=== PATIENT | female | born 1985 | race Caucasian/White ===

== ENCOUNTER 2018-08-07 22:03 | Emergency (ER) | payer MEDICAID ==
[2018-08-08] MEDS ORDERED: LIDOCAINE 1%/EPINEPHRINE INJ 20 ML VIAL ONE (00:59)
[2018-08-08] MEDS ORDERED: LIDOCAINE 1%/EPINEPHRINE INJ 20 ML VIAL INJ ONE (01:00)
--- NOTE | 2018-08-08 01:05 | ER Document Report ---
ED Skin Rash/Insect Bite/Abscs - General Chief Complaint: Abscess Stated Complaint: LEFT BREAST PAIN Time Seen by Provider: 08/07/18 23:07 Primary Care Provider: [facility] [Provider Group] - 08/22/18 Notes: Patient is a 33-year-old female who presents to the emergency department with a chief complaint of a cyst or abscess to her left breast. About 3 days ago she noticed that she had redness, swelling, and pain to the area. She states it is a tender sore pain. She marked the area, which is on the medial aspect of her areola. She also has marked the swelling and notes it has spread She has history of having an abscess to her right breast, which needed to be surgically removed. She denies any fever, nausea, vomiting, diarrhea, or any other symptoms. TRAVEL OUTSIDE OF THE [place] IN LAST 30 DAYS: No - Related Data Allergies/Adverse Reactions: No Known Allergies Allergy (Unverified 08/07/18 22:06) Past Medical History - Social History Smoking Status: Never Smoker Frequency of alcohol use: Occasional Drug Abuse: None Family History: Reviewed & Not Pertinent Patient has suicidal ideation: No Patient has homicidal ideation: No Renal/ Medical History: Denies: Hx Peritoneal Dialysis Review of Systems - Review of Systems Notes: REVIEW OF SYSTEMS: CONSTITUTIONAL : Denies recent illness. Denies recent unintentional weight loss. Denies fever, chills, or sweats. EENT: Denies eye, ear, throat, or mouth pain, discharge, or symptoms. Denies nasal or sinus congestion. CARDIOVASCULAR: Denies chest pain. RESPIRATORY: Denies shortness of breath, cough, congestion, difficulty breathing, or wheezing. GASTROINTESTINAL: Denies nausea, vomiting, and diarrhea. Denies abdominal pain. Denies constipation. GENITOURINARY: Denies difficulty urinating, burning, blood in urine, urgency or frequency. MUSCULOSKELETAL: Denies neck and back pain. Denies joint pain or swelling. SKIN: See HPI HEMATOLOGIC : Denies easy bruising or bleeding. LYMPHATIC: Denies swollen, painful, enlarged glands. NEUROLOGICAL: Denies no numbness or tingling denies weakness. Denies headache. Denies altered mental status. Denies alteration in speech. PSYCHIATRIC: Denies stress, anxiety, alteration in sleep patterns, or depression. All other systems reviewed and negative. Physical Exam - Vital signs Vitals: Temp Pulse Resp BP Pulse Ox 98.8 F 95 14 145/43 H 96 08/07/18 22:48 08/07/18 22:48 08/07/18 22:48 08/07/18 22:48 08/07/18 22:48 - Notes Notes: PHYSICAL EXAMINATION: GENERAL: Appears well, healthy, well-nourished, no acute distress. HEAD: Normocephalic, atraumatic. EYES: PERRL, conjunctiva normal, all extraocular movements intact, sclera nonicteric ENT: Moist mucous membranes. NECK: Supple, no noticeable swelling, redness, rash. Normal range of motion. LUNGS: Equal breath sounds bilaterally and clear to auscultation. No wheezes rales or rhonchi. CARDIOVASCULAR: S1-S2, regular rate, regular rhythm. Radial pulses 2+, normal. ABDOMEN: Normoactive bowel sounds. Soft, nontender, no guarding, no rebound tenderness, and no masses palpated. EXTREMITIES: Normal strength and range of motion, no pitting or edema. No cyanosis. NEUROLOGICAL: Moves all extremities upon command. Strength 5/5 in all extremities. PSYCH: Normal mood, normal affect. SKIN: Warm, dry. Redness noted to medial aspect of left areola with surrounding cellulitis. Abcess noted on bedside ultrasound. Course - Re-evaluation Re-evalutation: Differential diagnosis includes but normal limited to: abscess, dermoid cyst, sebaceous cyst, furnucle, or others. Based on patient's physical exam and history, this is an abscess. 08/07/18 23:[address] Dunlap and asked him to evaluate the patient because the abscess is underneath her areola via bedside ultrasound and do not feel comfortable draining abscess underneath the areola myself. He is going to come to bedside to evaluate the patient. 08/08/18 01:05 Dr. Dunlap is at bedside to evaluate the patient. He will I&D the abscess at bedside. 08/08/18 01:44 Dr. Dunlap has finished the I&D and has placed packing to the area. She will be started on Augmentin 875 mg twice daily times 10 days. She will remove the packing tomorrow and repack her wound every day and apply triple antibiotic to the area. In 2 weeks she will follow-up with SANTY Grady in the office. She will be given Toradol for pain control and also take Tylenol. - Vital Signs Vital signs: Temp Pulse Resp BP Pulse Ox 98.2 F 82 16 146/93 H 100 08/08/18 02:22 08/08/18 02:22 08/08/18 02:22 08/08/18 02:22 08/08/18 02:22 Discharge - Discharge Clinical Impression: Abscess Condition: Stable Disposition: HOME, SELF-CARE Instructions: Abscess ([facility]) Additional Instructions: You were seen today in the emergency department for an abscess on your left breast. The surgeon came by and drained the abscess. Tomorrow we will remove the packing, and placed new packing for the next [address] triple antibiotic to the area. We will also start antibiotics for the next 10 days. Please take all your antibiotics as prescribed. In 2 weeks he will follow-up with the physician junior sales assistant in the office. You have also been given Toradol, medication for pain. Please make sure you also take Tylenol for your pain. When you do not have any more Toradol, you can take ibuprofen for your pain. If you develop a fever greater than 100.4 F, see the redness spreading, or have any symptoms that are worrisome to you, please return to the emergency department. Prescriptions: Ketorolac Tromethamine [Toradol 10 mg Tablet] 10 mg PO Q6HP PRN #20 tablet PRN Reason: Amox Tr/Potassium Clavulanate [Augmentin 875-125 Tablet] 1 tab PO BID 10 Days #20 tablet Referrals: [facility] [Provider Group] - 08/22/18
[2018-08-08] MEDS ORDERED: LIDOCAINE 2% INJ (20 MG/ML) 20 ML MDV ONE (01:18)
--- NOTE | 2018-08-08 01:38 | PDOC CONSULTATION ---
Consultation Consult Date: 08/08/18 Consult reason:: left breast redness and pain History of Present Illness History of Present Illness: SOLANGE LARSEN is a 33 year old female with a 3 day hx of left breast periareolar pain and redness. Social History Smoking Status: Never Smoker Family History Parental Family History Reviewed: Yes - diabetes Children Family History Reviewed: No Sibling(s) Family History Reviewed.: No Medication/Allergy Allergies/Adverse Reactions: No Known Allergies Allergy (Unverified 08/07/18 22:06) Physical Exam Vital Signs: Temp Pulse Resp BP Pulse Ox 98.8 F 95 14 145/43 H 96 08/07/18 22:48 08/07/18 22:48 08/07/18 22:48 08/07/18 22:48 08/07/18 22:48 Intake & Output 08/06/18 08/07/18 08/08/18 06:59 06:59 06:59 Weight 99.3 kg General appearance: PRESENT: no acute distress, mild distress Eye exam: PRESENT: EOMI Mouth exam: PRESENT: neck supple Respiratory exam: PRESENT: clear to auscultation qing Cardiovascular exam: PRESENT: RRR GI/Abdominal exam: PRESENT: soft Skin exam: PRESENT: other - left breast: periareolar redness and swelling with pain on palpation Assessment & Plan - Plan Summary Plan Summary: A/ Left breast periareolar abscess P/ I&D at bedside Augmentin 875 mg po BID x 10 days remove packing in 36 hours, shower, apply triple antibiotic ointment into wound, pack it with 1/4" packing strip; repeat daily F/u surgery Clinc w/ SANTY Grady in 2 weeks
--- NOTE | 2018-08-08 01:41 | Operative Report ---
Nonrecallable Operative Report DATE OF SURGERY: 08/08/18 PREOPERATIVE DIAGNOSIS: left breast periareolar abscess POSTOPERATIVE DIAGNOSIS: same OPERATION: left breast abscess I&D SURGEON: OLI SAGE ANESTHESIA: Local - 30 mL 1% lidocaine with epinephrine TISSUE REMOVED OR ALTERED: n/a COMPLICATIONS: none ESTIMATED BLOOD LOSS: < 5 mL INTRAOPERATIVE FINDINGS: small cavity filled with @ 10 mL pus, no odor PROCEDURE: see dictation
[2018-08-08] MEDS ORDERED: KETOROLAC TROMETHAMINE 10 MG TABLET PO ONE (01:51)
[2018-08-08] MEDS ORDERED: KETOROLAC TROMETHAMINE 60 MG/2 ML SDV IM ONE (01:54)
[2018-08-08 02:22] VITALS: BP 146/93
--- NOTE | 2018-08-08 05:07 | OPERATIVE REPORT E ---
Operative Report NAME: SOLANGE LARSEN : 1985 AGE: 33Y DATE OF SURGERY: 08/08/2018 ROOM: PREOPERATIVE DIAGNOSIS: LEFT BREAST PERIAREOLAR ABSCESS. POSTOPERATIVE DIAGNOSIS: LEFT BREAST PERIAREOLAR ABSCESS. OPERATION: Incision and drainage of left breast periareolar abscess. SURGEON: OLI ASGE M.D. ETHNOARCHAEOLOGIST: None. BLEEDING: Less than 5 mL. COMPLICATIONS: None. ANESTHESIA: 30 mL of 1% lidocaine with epinephrine. INDICATIONS AND FINDINGS: This is a healthy 33-year-old female with a history of left breast erythema and swelling located in the periareolar area at about 9 o'clock for the past 3 days. An ultrasound has been done, revealing an abscess cavity. A decision was made to drain the abscess at bedside in the emergency room. PROCEDURE: The procedure was done in the emergency room. The patient was placed in the supine position. The left breast was exposed. The area of redness and tenderness was painted with Betadine and draped in a sterile fashion. The area was then infiltrated with 1% lidocaine with epinephrine, and a curvilinear incision was made between the normal skin and the areola. A pocket of pus was then entered. This was enlarged with scissors and finger and about 10 mL of pus was obtained. This was sent for aerobic and anaerobic culture, for Gram stain. The periareolar incision was completely opened with a finger and scissors and a single subcutaneous cavity was obtained. The cavity was irrigated with about 100 mL of normal saline until clear, packed with a 1/4-inch packing strip, and a sterile dressing applied. The patient tolerated the procedure well. She was given a followup appointment to the surgery clinic in about 2 weeks. She was given instructions to take Augmentin 875 mg p.o. b.i.d. for 10 days. The packing should be removed in about 36 hours. Following that, the patient should shower and apply triple-antibiotic ointment to the wound followed by the use of packing strip and sterile dressings. Follow up in the office in 2 weeks. DICTATING PHYSICIAN: OLI SAGE M.D. [id number] PHY#: [id number] ID: [id number] JOB#: [id number] ACCT: [id number] cc:OLI SAGE M.D. > [facility]
== END 2018-08-08 02:22 | disposition home or self-care (01) ==
LOC: ER 22:03
DX: N61.1 Abscess of the breast and nipple (principal)
CPT/HCPCS: 99283; 96372; 87070; 87205; 87075; 10060; A6266; J3490; J1885; 87077

== ENCOUNTER 2018-08-15 16:56 | Emergency (ER) | payer MEDICAID ==
[2018-08-15] MEDS ORDERED: OXYCODONE-ACETAMINOPHEN 5-325 MG TABLET PO ONE (17:23)
[2018-08-15] MEDS ORDERED: SULFAMETHOXAZOLE/TRIMETHOPRIM 800-160 MG TABLET PO ONE (17:23)
--- NOTE | 2018-08-15 17:26 | ER Document Report ---
HPI - HPI Patient complains to provider of: Abscess Time Seen by Provider: 08/15/18 17:16 Onset/Duration: Worse Quality of pain: Achy Pain Level: 4 Context: Patient complains of abscess to left side of abdomen for the past 5 days. Patient states area is red tender and swollen. Patient is currently taking Augmentin after having a breast abscess. Patient states she has about 2 more days of antibiotics left. Associated Symptoms: denies: Fever Exacerbated by: Denies Relieved by: Denies Similar symptoms previously: Yes Recently seen / treated by doctor: Yes - ROS ROS below otherwise negative: Yes Systems Reviewed and Negative: Yes All other systems reviewed and negative - CONSTITUTIONAL Constitutional: DENIES: Fever - GASTROINTESTINAL Gastrointestinal: REPORTS: Abdominal Pain. DENIES: Nausea - REPRODUCTIVE Reproductive: DENIES: : - DERM Skin Color: Erythema Notes: Abscess to abdomen Past Medical History - General Information source: Patient - Social History Smoking Status: Current Every Day Smoker Smoking Education Provided: Yes Frequency of alcohol use: Occasional Drug Abuse: None Lives with: Family Family History: Reviewed & Not Pertinent Patient has suicidal ideation: No Patient has homicidal ideation: No - Medical History Medical History: Negative Renal/ Medical History: Denies: Hx Peritoneal Dialysis Past Surgical History: Reports: Hx Appendectomy, Hx Section, Hx Tonsillectomy, Hx Tubal Ligation Vertical Provider Document - CONSTITUTIONAL Agree With Documented VS: Yes Exam Limitations: No Limitations General Appearance: WD/WN, No Apparent Distress - INFECTION CONTROL TRAVEL OUTSIDE OF THE [place] IN LAST 30 DAYS: No - HEENT HEENT: Atraumatic, Normocephalic - NECK Neck: Normal Inspection, Supple. negative: Lymphadenopathy-Left, Lymphadenopathy-Right - RESPIRATORY Respiratory: Breath Sounds Normal, No Respiratory Distress - CARDIOVASCULAR Cardiovascular: Regular Rate, Regular Rhythm - GI/ABDOMEN Gastrointestinal: Abdomen Soft Notes: Patient with fluctuant abscess with surrounding erythema to the left side of lower abdomen. - BACK Back: Normal Inspection - MUSCULOSKELETAL/EXTREMETIES Musculoskeletal/Extremeties: TAYLOR ARGUELLO - NEURO Level of Consciousness: Awake, Alert, Appropriate Motor/Sensory: No Motor Deficit - DERM Integumentary: Warm, Dry, Abscess - Resolving abscess to left breast with packing in place, no surrounding erythema, no purulent drainage. Fluctuant abscess to left side of lower abdomen with surrounding erythema. Course - Vital Signs Vital signs: Temp Pulse Resp BP Pulse Ox 97.9 F 74 14 137/81 H 98 08/15/18 17:04 08/15/18 17:04 08/15/18 17:04 08/15/18 17:04 08/15/18 17:04 Procedures - Incision and Drainage Left Abdomen Type: Simple Anesthetic type: 1% Lidocaine Blade size: 11 I&D procedure: Betadine prep applied Incision Method: Incision made by scalpel Amount/type of drainage: Large amount of purulent material removed Adult Front & Back picture: 1 - Abscess with surrounding erythema Discharge - Discharge Clinical Impression: Abdominal abscess, Encounter for incision and drainage procedure Cellulitis Qualifiers: Site of cellulitis: trunk Site of cellulitis of trunk: abdominal wall Qualified Code(s): L03.311 - Cellulitis of abdominal wall Condition: Stable Disposition: HOME, SELF-CARE Instructions: Abscess ([facility]), Post Incision and Drainage, Trimethoprim-Sulfa ([facility]) Additional Instructions: Return immediately for any new or worsening symptoms Followup with your primary care provider, call tomorrow to make a followup appointment Continue to take the Augmentin that you were previously prescribed Prescriptions: Amox Tr/Potassium Clavulanate [Augmentin 875-125 Tablet] 1 tab PO BID 3 Days tablet Mupirocin [Bactroban 2% Ointment 22 gm] 1 applic TP TID #22 gm Sulfamethoxazole/Trimethoprim [Bactrim Ds Tablet] 1 each PO BID #20 tablet Forms: Smoking Cessation Education Referrals: [facility] [Provider Group] - Follow up as needed [facility] [Provider Group] - Follow up as needed
[2018-08-15 18:39] VITALS: BP 125/68
== END 2018-08-15 18:37 | disposition home or self-care (01) ==
LOC: ER 16:56
DX: L02.211 Cutaneous abscess of abdominal wall (principal); N61.1 Abscess of the breast and nipple; F17.200 Nicotine dependence, unspecified, uncomplicated; Z98.51 Tubal ligation status
CPT/HCPCS: 99283

== ENCOUNTER 2019-02-27 08:36 | Emergency (ER) | payer MEDICAID ==
[2019-02-27] MEDS ORDERED: NORMAL SALINE 1000 ML 1,000 ML IV ONE (09:28)
[2019-02-27] MEDS ORDERED: ONDANSETRON HCL INJ/PF 4 MG/2 ML SDV IV ONE (09:28)
--- NOTE | 2019-02-27 09:34 | ER Document Report ---
ED GI/ - General Chief Complaint: Abdominal Pain Stated Complaint: FLANK PAIN Time Seen by Provider: 02/27/19 09:26 Notes: 33-year-old female presents with right upper quadrant abdominal pain starting yesterday. Patient has had this before when she lived in [place]. This was 3 to 4 years ago she had a HIDA scan which showed some dysfunction she is supposed to schedule to have her gallbladder out but never did. The patient began having discomfort yesterday after eating. Patient had nausea and vomiting. Had one loose stool. Denies black bloody or tarry school describes the pain is cramping in her right upper quadrant nonradiating. Denies fever or chills. TRAVEL OUTSIDE OF THE [place] IN LAST 30 DAYS: No - Related Data Allergies/Adverse Reactions: No Known Allergies Allergy (Unverified 08/07/18 22:06) Past Medical History - Social History Smoking Status: Current Every Day Smoker Chew tobacco use (# tins/day): No Frequency of alcohol use: Social Drug Abuse: None Family History: Reviewed & Not Pertinent Patient has suicidal ideation: No Patient has homicidal ideation: No Renal/ Medical History: Denies: Hx Peritoneal Dialysis Past Surgical History: Reports: Hx Appendectomy, Hx Section, Hx Tonsillectomy, Hx Tubal Ligation Review of Systems - Review of Systems Constitutional: denies: Chills, Fever Gastrointestinal: Abdominal pain, Diarrhea, Nausea, Vomiting. denies: Constipation, Blood streaked bowels, Rectal bleeding Genitourinary: denies: Hematuria Neurological/Psychological: denies: Headaches -: No All other systems reviewed and negative Physical Exam - Vital signs Vitals: Temp Pulse Resp BP Pulse Ox 97.7 F 98 16 138/87 H 96 02/27/19 08:43 02/27/19 08:43 02/27/19 08:43 02/27/19 08:43 02/27/19 08:43 - Notes Notes: GENERAL_APPEARANCE: well_nourished, alert, cooperative, no_acute_distress, no_obvious_discomfort. VITALS: reviewed, see vital signs table. HEAD: no_swelling\tenderness on the head. EYES: PERRL, EOMI, conjunctiva_clear. NOSE: no_nasal_discharge. MOUTH: (-)decreased moisture. THROAT: no_tonsilar_inflammation, no_airway_obstruction. no_lymphadenopathy NECK: supple, no_neck_tenderness, (-)thyromegaly. BACK: no_back_tenderness. CHEST_WALL: no_chest_tenderness. LUNGS: no_wheezing, no_rales, no_rhonchi, (-)accessory muscle use, good air exc hange bilateral. HEART: normal_rate, normal_rhythm, normal_S1, normal_S2, (-)S3, (-)S4, no_murmur, no_rub. ABDOMEN: normal_BS, soft, right upper quadrant_abd_tenderness, (-)guarding, (- )rebound, no_organomegaly, no_abd_masses. If he sign negative EXTREMITIES: good pulses in all_extremities, no_swelling\tenderness in the extremities, no_edema. SKIN: warm, dry, good_color, no_rash. MENTAL_STATUS: speech_clear, oriented_X_3, normal_affect, responds_appropriately to questions. Course - Re-evaluation Re-evalutation: 02/27/19 09:33 Patient presents with right upper quadrant abdominal pain her abdomen is soft and supple she does not have any rebound or guarding or Zhou sign she is uncomfortable in the right upper quadrant but not significant. We will ultrasound her gallbladder and check labs. Patient had a HIDA scan 3 or 4 years ago which showed dysfunction she was supposed to have her gallbladder out while she was in [place] but did not likely she will need to be established with a surgeon here to have this arranged electively. 02/27/19 12:02 The patient is feeling better after fluids and some medications. Patient does have gallstones is likely having biliary colic she had a little bit of an elevated white count but no LFT elevations repeat exam again shows very mild discomfort in the right upper quadrant but no Zhou sign no rebound or guarding. This is likely biliary colic. I do not believe the patient has acute cholecystitis. There is no pericholecystic fluid or wall inflammation. The p atient's exam is very benign for the most part. The patient will be referred to surgery outpatient. Again I do not believe she is acute cholecystitis requiring emergent surgery. Will prescribe Bentyl and Zofran for the patient for home - Vital Signs Vital signs: Temp Pulse Resp BP Pulse Ox 97.7 F 98 16 138/87 H 96 02/27/19 08:43 02/27/19 08:43 02/27/19 08:43 02/27/19 08:43 02/27/19 08:43 - Laboratory Result Diagrams: 02/27/19 09:11 02/27/19 09:11 Laboratory results interpreted by me: 02/27/19 02/27/19 09:11 09:11 WBC 11.5 H RDW 14.3 H Plt Count 523 H Urine Blood SMALL H - Diagnostic Test Radiology reviewed: Reports reviewed Radiology results interpreted by me: 02/27/19 12:01 Acute Abdomen Series 02/27/19 09:26 IMPRESSION: Constipation. No other significant findings. Abdomen Ultrasound 02/27/19 09:28 IMPRESSION: Gallstones. Mild fatty infiltration of the liver. Discharge - Discharge Clinical Impression: Biliary colic Condition: Good Disposition: HOME, SELF-CARE Instructions: Gallbladder Disease ([facility]), Antispasmodics ([facility]) Additional Instructions: Please follow-up with Dr. Toussaint surgery for outpatient evaluation of your gallbladder. Please get all the records from the hospital you were worked up before [id number] to present for them on your first appointment Prescriptions: Dicyclomine HCl [Bentyl 20 mg Tablet] 20 mg PO QID #40 tablet Ondansetron [Zofran Odt 4 mg Tablet] 1 - 2 tab PO Q4H PRN #15 tab.rapdis PRN Reason: For Nausea/Vomiting Referrals: CARRIE HARDY MD [[facility]] - Follow up as needed
[2019-02-27 09:46] LABS: ABSOLUTE BASOPHILS # (AUTO) 0.1 10^3/uL (0.0-0.2); ABSOLUTE EOSINOPHILS # (AUTO) 0.2 10^3/uL (0.0-0.6); ABSOLUTE LYMPHOCYTES (AUTO) 2.7 10^3/uL (0.5-4.7); ABSOLUTE MONOCYTES (AUTO) 0.7 10^3/uL (0.1-1.4); ABSOLUTE NEUT (AUTO) 7.7 10^3/uL (1.7-8.2); BASOPHILS % (AUTO) 1.3 % (0-2); EOSINOPHILS % (AUTO) 1.8 % (0-6); HEMATOCRIT 40.1 % (36.0-47.0); HEMOGLOBIN 13.8 g/dL (12.0-15.5); LYMPHOCYTES % (AUTO) 23.4 % (13-45); MEAN CORPUSCULAR HGB CONC 34.5 g/dL (32.0-36.0); MEAN CORPUSCULAR VOLUME 81 fl (80-97); MONOCYTES % (AUTO) 6.4 % (3-13); PLATELET COUNT 523 10^3/uL (150-450); RED BLOOD COUNT 4.95 10^6/uL (3.72-5.28); RED CELL DISTRIBUTION WIDTH 14.3 % (11.5-14.0); SEGMENTED NEUTROPHILS % (AUTO) 67.1 % (42-78); TOTAL CELLS COUNTED % (AUTO) 100 %; WHITE BLOOD COUNT 11.5 10^3/uL (4.0-10.5)
[2019-02-27 09:48] LABS: APPEARANCE,URINE CLOUDY; BILIRUBIN,URINE NEGATIVE (NEGATIVE); COLOR,URINE YELLOW; GLUCOSE, URINE NEGATIVE (NEGATIVE); KETONES,URINE NEGATIVE (NEGATIVE); LEUKOCYTE ESTERASE,URINE NEGATIVE (NEGATIVE); NITRITE,URINE NEGATIVE (NEGATIVE); PROTEIN,URINE NEGATIVE (NEGATIVE); URINE SPECIFIC GRAVITY 1.018; UROBILINOGEN,URINE NEGATIVE mg/dL (<2.0)
[2019-02-27 10:10] LABS: ALBUMIN 4.2 g/dL (3.5-5.0); ALKALINE PHOSPHATASE 64 U/L (38-126); ANION GAP 10 (5-19); ASPARTATE AMINO TRANSFERASE 21 U/L (14-36); BILIRUBIN,DIRECT 0.1 mg/dL (0.0-0.4); BILIRUBIN,TOTAL 0.3 mg/dL (0.2-1.3); BLOOD UREA NITROGEN 12 mg/dL (7-20); CALCIUM 9.3 mg/dL (8.4-10.2); CARBON DIOXIDE 28 mmol/L (22-30); CHLORIDE 102 mmol/L (98-107); GLUCOSE 85 mg/dL (75-110); POTASSIUM 4.7 mmol/L (3.6-5.0); TOTAL PROTEIN 7.2 g/dL (6.3-8.2)
--- NOTE | 2019-02-27 11:03 | RADIOLOGY REPORT (SQ) ---
EXAM DESCRIPTION: U/S ABDOMEN LIMITED W/O DOP COMPLETED DATE/TIME: 02/27/2019 10:40 am REASON FOR STUDY: RUQ PAIN COMPARISON: None. TECHNIQUE: Dynamic and static grayscale images acquired of the abdomen and recorded on PACS. Additio nal selected color Doppler and spectral images recorded. LIMITATIONS: None. FINDINGS: PANCREAS: No masses. Visualized pancreatic duct normal caliber. LIVER: Mild increased echogenicity. No focal masses. LIVER VASCULATURE: Normal directional flow of the main portal vein and hepatic veins. GALLBLADDER: There are gallstones. No wall thickening or pericholecystic edema. ULTRASOUND-DETECTED DEVI'S SIGN: Negative. INTRAHEPATIC DUCTS AND COMMON DUCT: CBD and intrahepatic ducts normal caliber. No filling defects. INFERIOR VENA CAVA: Normal flow. AORTA: No aneurysm. RIGHT KIDNEY: Normal size. Normal echogenicity. No solid or suspicious masses. No hydronephrosis. No calcifications. PERITONEAL AND RIGHT PLEURAL SPACE: No ascites or effusions. OTHER: No other significant findings. IMPRESSION: Gallstones. Mild fatty infiltration of the liver. TECHNICAL DOCUMENTATION: JOB ID: [id number] [employer]- All Rights Reserved Reading location - IP/workstation name: [email or web address]
--- NOTE | 2019-02-27 11:16 | RADIOLOGY REPORT (SQ) ---
EXAM DESCRIPTION: ACUTE ABDOMEN SERIES COMPLETED DATE/TIME: 02/27/2019 11:03 am REASON FOR STUDY: abd pain COMPARISON: None. NUMBER OF VIEWS: Three views. TECHNIQUE: Frontal chest, supine abdomen and upright/decubitus abdomen radiographic images acquired. LIMITATIONS: None. FINDINGS: CHEST: Lungs clear of infiltrates. FREE AIR: None. No abnormal gas collections. BOWEL GAS PATTERN: Gas pattern is nonobstructive. There is large amount of stool throughout the colo n consistent with constipation. CALCIFICATIONS: No suspicious calcifications. HARDWARE: None in the abdomen. SOFT TISSUES: No gross mass or suggestion of organomegaly. BONES: No acute fracture. No worrisome bone lesions. OTHER: No other significant finding. IMPRESSION: Constipation. No other significant findings. TECHNICAL DOCUMENTATION: JOB ID: [id number] [employer]- All Rights Reserved Reading location - IP/workstation name: [email or web address]
[2019-02-27] MEDS ORDERED: KETOROLAC TROMETHAMINE INJ/PF 30 MG/1 ML SDV IV ONE (11:43)
[2019-02-27 12:50] VITALS: BP 120/71
== END 2019-02-27 12:50 | disposition home or self-care (01) ==
LOC: ER 08:36
DX: K80.20 Calculus of gallbladder without cholecystitis without obstruction (principal); K59.00 Constipation, unspecified; R19.7 Diarrhea, unspecified; D72.829 Elevated white blood cell count, unspecified; K76.0 Fatty (change of) liver, not elsewhere classified; R10.11 Right upper quadrant pain; R11.2 Nausea with vomiting, unspecified; F17.200 Nicotine dependence, unspecified, uncomplicated; Z90.49 Acquired absence of other specified parts of digestive tract; Z98.51 Tubal ligation status
CPT/HCPCS: 36415; 83690; 84703; 85025; 80053; 81001; 74022; 76705; J1885; J2405; J7030; 96361; 96374; 96375; 99284

== ENCOUNTER 2019-05-11 08:31 | Day surgery (SDC) | payer MEDICAID ==
[2019-05-04 09:46] LABS: HEMATOCRIT 40.2 % (36.0-47.0); HEMOGLOBIN 13.5 g/dL (12.0-15.5); MEAN CORPUSCULAR HGB CONC 33.6 g/dL (32.0-36.0); MEAN CORPUSCULAR VOLUME 80 fl (80-97); PLATELET COUNT 595 10^3/uL (150-450); RED CELL DISTRIBUTION WIDTH 15.1 % (11.5-14.0); WHITE BLOOD COUNT 13.3 10^3/uL (4.0-10.5)
[2019-05-04 10:18] LABS: ALBUMIN 4.4 g/dL (3.5-5.0); ALKALINE PHOSPHATASE 65 U/L (38-126); ANION GAP 11 (5-19); ASPARTATE AMINO TRANSFERASE 24 U/L (14-36); BILIRUBIN,DIRECT 0.1 mg/dL (0.0-0.4); BILIRUBIN,TOTAL 0.4 mg/dL (0.2-1.3); BLOOD UREA NITROGEN 12 mg/dL (7-20); CALCIUM 9.6 mg/dL (8.4-10.2); CARBON DIOXIDE 27 mmol/L (22-30); CHLORIDE 103 mmol/L (98-107); GLUCOSE 84 mg/dL (75-110); POTASSIUM 4.6 mmol/L (3.6-5.0); TOTAL PROTEIN 7.6 g/dL (6.3-8.2)
[~2019-05-11 08:31] MED LIST: ACETAMINOPHEN 325 MG TABLET PO PRN; CEFOXITIN SODIUM 2 GM in DEXTROSE 5%-WATER 100 ML IV PRN; IBUPROFEN 800 MG in NORMAL SALINE 250 ML IV PRN; RINGERS SOLUTION,LACTATED 1,000 ML IV PRN
[2019-05-11] MEDS ORDERED: ACETAMINOPHEN 325 MG TABLET ONE (09:25)
[2019-05-11] MEDS ORDERED: ALBUTEROL SULFATE 0.083% NEB 2.5 MG/3 ML AMPUL NEB ONE (09:41)
[2019-05-11] MEDS ORDERED: MIDAZOLAM 2 MG/2 ML INJ ONE ×2 (09:41→10:00)
[2019-05-11] MEDS ORDERED: SCOPOLAMINE HYDROBROMIDE 1.5 MG PATCH.TD72 ONE (09:41)
[2019-05-11] MEDS ORDERED: FAMOTIDINE INJ/PF 20 MG/2 ML SDV IV ONE (09:41)
[2019-05-11] MEDS ORDERED: FENTANYL CITRATE INJ/PF 100 MCG/2 ML AMPUL ONE ×2 (09:59→11:47)
[2019-05-11] MEDS ORDERED: PROPOFOL INJ 200 MG/20 ML VIAL IV ONE (10:00)
[2019-05-11] MEDS ORDERED: BUPIVACAINE HCL 0.25 % INJ/PF (2.5 MG/1 ML) 30 ML VIAL ONE (10:10)
[2019-05-11] MEDS ORDERED: DIPHENHYDRAMINE HCL 50 MG/ML VIAL IV PRN (10:31)
[2019-05-11] MEDS ORDERED: FENTANYL CITRATE INJ/PF 100 MCG/2 ML AMPUL IV PRN ×2 (10:31)
[2019-05-11] MEDS ORDERED: BUPIVACAINE HCL 0.25 % INJ/PF (2.5 MG/1 ML) 30 ML VIAL INJ ONE (10:43)
[2019-05-11] MEDS: FENTANYL CITRATE INJ/PF 100 MCG/2 ML AMPUL IV PRN ×2 (11:50→11:59)
--- NOTE | 2019-05-11 11:51 | Discharge Summary ---
Discharge Summary (SDC) - Discharge Final Diagnosis: Symptomatic gallstones Date of Surgery: 05/11/19 Discharge Date: 05/11/19 Condition: Stable Forms: ASU Anesthesia D/C Instruction, Discharge POC-Surgical Service Treatment or Instructions: NO DRIVING TODAY NO TUB BATHS AND NO SWIMMING FOR 2 WEEKS. MAY SHOWER ON DAY 2 POST-OP TAKE MEDICATIONS DIRECTED FOLLOW UP WITH YOUR MD DIRECTED Discharge home. Diet as tolerated. Activity: No lifting greater than 10 pounds x 2 weeks. Follow-up with me at [facility] in 7 to 10 days. Eaton 10/325 mg p.o. every 6 hours as needed for pain. Referrals: DAVIS NAPOLES MD [ACTIVE STAFF] - 05/22/19 8:45 am Discharge Diet: As Tolerated Respiratory Treatments at Home: Deep Breathing/Coughing, Incentive Spirometer Discharge Activity: No Lifting Over 10 Pounds, No Lifting/Push/Pulling Home Care Assistance: None Needed Report the Following to Your Physician Immediately: Shortness of Breath, Nausea, Vomiting, Increase in Pain, Yellow Skin, Fever over 101 Degrees, Unusual Bleedi ng, Redness
--- NOTE | 2019-05-11 11:58 | Operative Report ---
Nonrecallable Operative Report DATE OF SURGERY: 05/11/19 PREOPERATIVE DIAGNOSIS: Symptomatic gallstones POSTOPERATIVE DIAGNOSIS: Same as above OPERATION: Laparoscopic cholecystectomy SURGEON: DAVIS TAYLOR MANAGER CONFIGURATION: ENEDINA CAR ANESTHESIA: GA TISSUE REMOVED OR ALTERED: Gallbladder COMPLICATIONS: None apparent ESTIMATED BLOOD LOSS: Minimal PROCEDURE: Drains/implants: None. Procedure in detail: After informed consent was obtained, the patient was brought into the operating room and laid in the supine position. The area of the abdomen was prepped and draped in a normal sterile fashion. A supraumbilical incision was created with a 15 blade scalpel. Dissection was carried through the subcutaneous tissue using sharp and blunt dissection. The cicatrix was identified, grasped with a Jamal clamp, and retracted upwards. The linea alba fascia was incised sharply, the abdomen was entered sharply. The balloon trocar was inserted, and pneumoperitoneum was achieved. A subxiphoid 5 mm port was placed under direct laparoscopic visualization. 2 more 5 mm ports were then placed in the right upper quadrant in similar fashion. Atraumatic graspers were placed through the 5 mm ports. The gallbladder was retracted cephalad and laterally. Dissection was begun in the triangle of Calot. The cystic duct and cystic artery were fully visualized and skeletonized, seeing the liver through the triangle. The critical view of safety was then obtained. Once this was ensured, the cystic duct and cystic artery were clipped and cut with laparoscopic instruments. The gallbladder was then removed from the liver using Bovie electrocautery. The gallbladder was placed into an Endo Catch bag and pulled out through the umbilicus. The camera was reinserted. The hilum was inspected. It was found to be free of any leakage of blood or bile. The 5 mm trochars were then removed under direct laparoscopic visualization. The supraumbilical trocar was removed, and pneumoperitoneum was relieved. The supraumbilical fascia was then closed using 0 Vicryl suture in [id number] fashion. The overlying skin was closed using 4-0 Vicryl Rapide suture in subcuticular fashion. All sponge, instrument, and needle counts were correct x2. Condition: Stable. Enedina Car PA-C was scrubbed and present the entirety the procedure. She assisted with all portions of the procedure including placement of the trochars, manipulation of the gallbladder, removal of the gallbladder, closure of the fascia, and closure of the skin.
[2019-05-11] MEDS ORDERED: HYDROCODONE/ACETAMINOPHEN 10-325 MG TABLET ONE (12:37)
[2019-05-11] MEDS ORDERED: HYDROCODONE/ACETAMINOPHEN 10-325 MG TABLET PO PRN (12:41)
[2019-05-11 13:48] VITALS: BP 131/66
[2019-05-11] MEDS ORDERED: IBUPROFEN 800 MG TABLET PO SCH (17:00)
[2019-05-11] MEDS ORDERED: DEXAMETHASONE SOD PHOSPHATE INJ 4 MG/1 ML VIAL ONE (17:34)
[2019-05-11] MEDS ORDERED: ONDANSETRON HCL INJ/PF 4 MG/2 ML SDV ONE (17:34)
[2019-05-11] MEDS ORDERED: SUCCINYLCHOLINE CHLORIDE INJ 200 MG/10 ML VIAL ONE (17:34)
[2019-05-11] MEDS ORDERED: LIDOCAINE 2% INJ-PF (20 MG/ML) 2 ML AMPUL ONE (17:34)
[2019-05-11] MEDS ORDERED: GLYCOPYRROLATE 1 MG/5 ML VIAL ONE (17:34)
[2019-05-11] MEDS ORDERED: NEOSTIGMINE METHYLSULFATE 10 MG/10 ML VIAL ONE (17:34)
[2019-05-11] MEDS ORDERED: ROCURONIUM BROMIDE INJ 50 MG/5 ML VIAL IV ONE (17:34)
== END 2019-05-11 13:40 | disposition home or self-care (01) ==
LOC: OROUT 08:31
PROVIDERS: ATTEND Surgery
DX: K80.10 Calculus of gallbladder with chronic cholecystitis without obstruction (principal); F17.210 Nicotine dependence, cigarettes, uncomplicated
CPT/HCPCS: 36415; 85027; 81025; 80053; 88304 ×2; 47562; J3490 ×6; J2250; J1100; J3010; J2710; J0330; J2405; J7060; J7050; J2704; S0028; J1741; J0694; 790

== ENCOUNTER 2019-06-22 15:35 | Emergency (ER) | payer MEDICAID ==
[2019-06-22 16:35] VITALS: BP 142/77
--- NOTE | 2019-06-22 16:44 | ER Document Report ---
ED Medical Screen (RME) - General Chief Complaint: Palpitations Stated Complaint: HEART PROBLEMS Time Seen by Provider: 06/22/19 16:35 Primary Care Provider: JARRETT COLLINS FNP-C [Primary Care Provider] - Follow up as needed Notes: Generally healthy 34-year-old female smoker presents to the emergency department with heart palpitations. Patient states that it first happened 4 months ago and more frequent in the last 2 months with 2 episodes that lasted about 10 seconds apiece today. She said that it felt like a fluttering in her heart, it persisted for about 10 seconds which really scared her. The second time she felt that she was going to blackout, became really dizzy, and started getting tunnel vision. She had associated nausea with that episode. She has clammy hands and had diaphoresis. No chest pain. She has a positive family history on her father's side to include her father for cardiac disease. Exam: Well-appearing no acute distress, lungs clear to auscultation, regular cardiac rate and rhythm, S1-S2 heard, no murmurs I have greeted and performed a rapid initial assessment of this patient. A comprehensive ED assessment and evaluation of the patient, analysis of test results and completion of medical decision making process will be conducted by an additional ED providers. TRAVEL OUTSIDE OF THE [place] IN LAST 30 DAYS: No - Related Data Allergies/Adverse Reactions: No Known Allergies Allergy (Verified 06/22/19 16:35) Past Medical History - Past Medical History Cardiac Medical History: Denies: Hx Coronary Artery Disease, Hx Heart Attack, Hx Hypertension Pulmonary Medical History: Denies: Hx Asthma, Hx Bronchitis, Hx COPD, Hx Pneumonia Neurological Medical History: Denies: Hx Cerebrovascular Accident, Hx Seizures Renal/ Medical History: Denies: Hx Peritoneal Dialysis Musculoskeltal Medical History: Denies Hx Arthritis Past Surgical History: Reports: Hx Appendectomy, Hx Section, Hx Tonsillectomy, Hx Tubal Ligation - Immunizations Hx Diphtheria, Pertussis, Tetanus Vaccination: Yes Physical Exam - Vital signs Vitals: Temp Pulse Resp BP Pulse Ox 99.1 F 96 18 142/77 H 95 06/22/19 16:10 06/22/19 16:10 06/22/19 16:10 06/22/19 16:10 06/22/19 16:10 Course - Vital Signs Vital signs: Temp Pulse Resp BP Pulse Ox 99.1 F 96 18 142/77 H 95 06/22/19 16:10 06/22/19 16:10 06/22/19 16:10 06/22/19 16:10 06/22/19 16:10 Doctor's Discharge - Discharge Referrals: JARRETT COLLINS FNP-C [Primary Care Provider] - Follow up as needed
[2019-06-22] MEDS ORDERED: ASPIRIN 81 MG TABLET, CHEWABLE PO ONE (17:03)
[2019-06-22 17:34] LABS: ABSOLUTE BASOPHILS # (AUTO) 0.1 10^3/uL (0.0-0.2); ABSOLUTE EOSINOPHILS # (AUTO) 0.3 10^3/uL (0.0-0.6); ABSOLUTE LYMPHOCYTES (AUTO) 3.2 10^3/uL (0.5-4.7); ABSOLUTE MONOCYTES (AUTO) 0.9 10^3/uL (0.1-1.4); ABSOLUTE NEUT (AUTO) 7.4 10^3/uL (1.7-8.2); BASOPHILS % (AUTO) 0.9 % (0-2); EOSINOPHILS % (AUTO) 2.6 % (0-6); HEMOGLOBIN 13.7 g/dL (12.0-15.5); LYMPHOCYTES % (AUTO) 27.1 % (13-45); MEAN CORPUSCULAR HEMOGLOBIN 27.5 pg (27.0-33.4); MEAN CORPUSCULAR HGB CONC 34.3 g/dL (32.0-36.0); MEAN CORPUSCULAR VOLUME 80 fl (80-97); MONOCYTES % (AUTO) 7.2 % (3-13); PLATELET COUNT 537 10^3/uL (150-450); RED BLOOD COUNT 4.98 10^6/uL (3.72-5.28); RED CELL DISTRIBUTION WIDTH 15.4 % (11.5-14.0); SEGMENTED NEUTROPHILS % (AUTO) 62.2 % (42-78); TOTAL CELLS COUNTED % (AUTO) 100 %; WHITE BLOOD COUNT 11.8 10^3/uL (4.0-10.5)
[2019-06-22 17:49] LABS: ALBUMIN 4.1 g/dL (3.5-5.0); ALKALINE PHOSPHATASE 66 U/L (38-126); ANION GAP 8 (5-19); ASPARTATE AMINO TRANSFERASE 20 U/L (14-36); BILIRUBIN,DIRECT 0.2 mg/dL (0.0-0.4); BILIRUBIN,TOTAL 0.3 mg/dL (0.2-1.3); BLOOD UREA NITROGEN 15 mg/dL (7-20); CARBON DIOXIDE 28 mmol/L (22-30); CHLORIDE 104 mmol/L (98-107); GLUCOSE 83 mg/dL (75-110); POTASSIUM 4.2 mmol/L (3.6-5.0); TOTAL PROTEIN 7.2 g/dL (6.3-8.2)
--- NOTE | 2019-06-22 19:36 | EKG REPORT ---
SEVERITY:- DEFECTIVE ECG - SINUS RHYTHM NONSPECIFIC INTRAVENTRICULAR CONDUCTION DELAY LA ABNORMALITY NONSPECIFIC LATERAL ST-T CHANGES : Confirmed by: Joaquin Asencio MD 22-Jun-2019 19:35:53
--- NOTE | 2019-06-22 19:38 | ER Document Report ---
ED Cardiac - General Chief Complaint: Palpitations Stated Complaint: HEART PROBLEMS Time Seen by Provider: 06/22/19 16:35 Primary Care Provider: JARRETT COLLINS FNP-C [Primary Care Provider] - Follow up as needed Notes: Generally healthy 34-year-old female smoker presents to the emergency department with heart palpitations. Patient states that it first happened 4 months ago and more frequent in the last 2 months with 2 episodes that lasted about 10 seconds apiece today. She said that it felt like a fluttering in her heart, it persisted for about 10 seconds which really scared her. The second time she felt that she was going to blackout, became really dizzy, and started getting tunnel vision. She had associated nausea with that episode. She has clammy hands and had diaphoresis. No chest pain. She has a positive family history on her father's side to include her father for cardiac disease. TRAVEL OUTSIDE OF THE [place] IN LAST 30 DAYS: No - Related Data Allergies/Adverse Reactions: No Known Allergies Allergy (Verified 06/22/19 16:35) Past Medical History - Social History Smoking Status: Current Every Day Smoker Frequency of alcohol use: Occasional Family History: Reviewed & Not Pertinent Patient has suicidal ideation: No Patient has homicidal ideation: No - Past Medical History Cardiac Medical History: Denies: Hx Coronary Artery Disease, Hx Heart Attack, Hx Hypertension Pulmonary Medical History: Denies: Hx Asthma, Hx Bronchitis, Hx COPD, Hx Pneumonia Neurological Medical History: Denies: Hx Cerebrovascular Accident, Hx Seizures Renal/ Medical History: Denies: Hx Peritoneal Dialysis Musculoskeletal Medical History: Denies Hx Arthritis Past Surgical History: Reports: Hx Appendectomy, Hx Section, Hx Tonsillectomy, Hx Tubal Ligation - Immunizations Hx Diphtheria, Pertussis, Tetanus Vaccination: Yes Review of Systems - Review of Systems Constitutional: See HPI EENT: No symptoms reported Cardiovascular: See HPI Respiratory: See HPI Gastrointestinal: See HPI Genitourinary: No symptoms reported Female Genitourinary: No symptoms reported Musculoskeletal: No symptoms reported Skin: No symptoms reported Hematologic/Lymphatic: No symptoms reported Neurological/Psychological: No symptoms reported Physical Exam - Vital signs Vitals: Temp Pulse Resp BP Pulse Ox 99.1 F 96 18 142/77 H 95 06/22/19 16:10 06/22/19 16:10 06/22/19 16:10 06/22/19 16:10 06/22/19 16:10 - Notes Notes: PHYSICAL EXAMINATION: Reviewed vital signs and charting by RN GENERAL: Alert, interacts well. No acute distress. HEAD: Normocephalic, atraumatic. EYES: Pupils equal and round. Extraocular movements intact. ENT: Oral mucosa moist, tongue midline. NECK: Full range of motion. Trachea midline. LUNGS: Clear to auscultation bilaterally, no wheezes, rales, or rhonchi. No respiratory distress. HEART: Regular rate and rhythm. No murmur ABDOMEN: soft, non-tender. No distention. Bowel sounds present EXTREMITIES: Moves all 4 extremities spontaneously. No edema, No cyanosis. PSYCH: Normal affect, normal mood. SKIN: Warm, dry, normal turgor. No rashes or lesions noted. Course - Re-evaluation Re-evalutation: 06/22/19 19:35 Presentation of chest pain in an otherwise well appearing patient. Low clinical suspicion for ACS given clinical history, exam, EKG without ST elevations or depressions, and negative initial troponin. HEART score less than or equal to 3. PE also seems unlikely given clinical history, absence of tachycardia or dy spnea. Patient is PERC criteria negative. CXR without evidence of pneumothorax or pneumonia. No widened mediastinum. Aortic dissection also seems unlikely given history, symmetric pulses, CXR, and vitals. Heart Score 1. Chest pain in a patient without evidence of cardiac or other serious etiology on workup today. I discussed with patient that, based on their age, risk factors and emergency department testing today, the likelihood that their symptoms are related to a heart attack is very low (estimated risk of heart attack or over the next 30 days of less than 1%). The patient demonstrates decision making capacity and has verbalized an understanding of these risks to me. Based on this, the patient has chosen to follow-up as an outpatient. Usual chest pain return precautions reviewed. The patient states understanding and agreement with this plan. - Vital Signs Vital signs: Temp Pulse Resp BP Pulse Ox 99.1 F 96 18 142/77 H 95 06/22/19 16:10 06/22/19 16:10 06/22/19 16:10 06/22/19 16:10 06/22/19 16:10 - Laboratory Result Diagrams: 06/22/19 17:07 06/22/19 17:07 Laboratory results interpreted by me: 06/22/19 17:07 WBC 11.8 H RDW 15.4 H Plt Count 537 H Discharge - Discharge Clinical Impression: Heart palpitations Condition: Good Disposition: HOME, SELF-CARE Additional Instructions: You were seen today for heart palpitations/fluttering however, based on your cardiac enzyme testing and EKG it does not appear that it is from an immediately life-threatening cause at this time. Although your testing here is normal is critical that you follow-up with your primary care physician for continued evaluation of this concern and possible stress testing. I recommended you see your physician within the next 24-48 hours to be evaluated for consideration of a stress test. Please return to emergency department immediately if you have worsening of your chest pain, shortness of breath, vomiting, become unable to exert yourself due to pain or difficulty breathing, you pass out, or have any pain that radiates into your arms, jaw, or back. Please also return if you have any additional symptoms that are concerning to you. I have given you a referral to our aircraft mechanic armament production control analyst and you can follow-up with him. Referrals: MARIA INES PICKETT MD [ACTIVE STAFF] - Follow up as needed JARRETT COLLINS FNP-Esdras [Primary Care Provider] - Follow up in 3-5 days
== END 2019-06-22 20:14 | disposition home or self-care (01) ==
LOC: ER 15:35
DX: R00.2 Palpitations (principal); R42 Dizziness and giddiness; R11.0 Nausea; R61 Generalized hyperhidrosis; F17.200 Nicotine dependence, unspecified, uncomplicated
CPT/HCPCS: 36415; 80053; 83735; 84484; 85025; 93005; 93010; 99285